=== PATIENT | female | born 1945 | race Caucasian/White ===

== ENCOUNTER → 2018-10-25 | Outpatient (CLI) | payer MEDICARE ==
--- NOTE | 2018-10-25 08:41 | US ---
EXAMINATION TYPE: US abdomen limited DATE OF EXAM: 10/25/2018 COMPARISON: NONE CLINICAL HISTORY: 73-year-old female R94.5 Elevated Liver Function. Patient takes medication for HTN, cholesterol, diuresis TECHNIQUE: Multiple sonographic images of the right upper quadrant are obtained. FINDINGS: EXAM MEASUREMENTS: Liver Length: 17.3 cm. Gallbladder Wall: 0.3 cm CBD: 4.3 mm Right Kidney: 9.3 x 4.9 x 4.0 cm Pancreas: Suboptimal visualization of the pancreatic tail secondary to shadowing from bowel gas. Vis ualized portions show no gross adenopathy. Liver: Borderline in size with heterogeneous and some images showing nodular contour. No focal les ion identified. Gallbladder: multiple shadowing gallstones measuring up to 1.8 cm, with one 4 mm nonmobile stone see n in neck in LLD position. No wall thickening, abnormal distention, or pericholecystic fluid. Evidence for sonographic Mendoza's sign: no CBD: wnl Right Kidney: No hydronephrosis. IMPRESSION: 1. Borderline liver size with heterogeneous echotexture and some images showing nodular contour. Shay elate for underlying cirrhosis. 2. Cholelithiasis measuring up to 1.8 cm. While one 4 mm gallstone is nonmobile at the neck, there ar e no ancillary findings of acute cholecystitis at this time. 3. No biliary ductal dilatation.
== END ==
LOC: RADUSWWP 06:54
PROVIDERS: ATTEND Family Medicine
DX: K80.20 Calculus of gallbladder without cholecystitis without obstruction (principal)
CPT/HCPCS: 76705

== ENCOUNTER → 2023-04-05 | Outpatient (CLI) | payer MEDICARE ==
--- NOTE | 2023-04-05 10:03 | US ---
EXAMINATION TYPE: US liver DATE OF EXAM: 04/05/2023 COMPARISON: 10/25/2018 CLINICAL INDICATION: Female, 77 years old with history of R94.5 ABN RESULTS OF LIVER FUNCTION TESTS; elevated LFTs TECHNIQUE: Multiple sonographic images of the right upper quadrant are obtained. FINDINGS: EXAM MEASUREMENTS: Liver Length: 15.4 cm Gallbladder Wall: 0.13 cm CBD: 0.22 cm Right Kidney: 9.8x4.7x4.6 cm MORTGAGE CLERK NOTES: Pancreas: Tail obscured by overlying bowel gas Liver: upper limits, heterogenous, surface nodularity Gallbladder: several large shadowing stones seen again on todays exam Evidence for sonographic Mendoza's sign: No CBD: wnl Right Kidney: No hydronephrosis or masses seen exam technically difficult due to rib shadows, bowel gas, and body habitus The visualized portions of the pancreas are unremarkable. The tail is obscured by overlying bowel gas . Liver is heterogenous in echotexture with surface nodularity identified suggestive of cirrhosis. Th is limits evaluation for lesions. No focal lesion visualized. Cholelithiasis demonstrated. No pericho lecystic fluid or wall thickening. Per housekeeper and laundry assistant, negative sonographic Mendoza sign. Common bile mk t within normal limits. No hydronephrosis or solid masses or nephrolithiasis involving the right kidn ey. IMPRESSION: Limited examination due to rib shadows, overlying bowel gas, and patient's body habitus. 1. Findings suggestive of hepatic cirrhosis with heterogeneous echotexture and surface nodularity. No visualized focal lesion. 2. Cholelithiasis without evidence for acute cholecystitis.
== END | disposition home or self-care (01) ==
LOC: RADUSWWP 08:09
PROVIDERS: ATTEND Family Medicine
DX: K80.20 Calculus of gallbladder without cholecystitis without obstruction (principal); R94.5 Abnormal results of liver function studies
CPT/HCPCS: 76705

== ENCOUNTER → 2023-10-11 | Outpatient (CLI) | payer MEDICARE ==
--- NOTE | 2023-10-12 07:37 | CA ---
Transthoracic Echo Report Name: Lyndsay Galan Age: 78 Gender: F : 1945 Exam Date: 10/11/2023 15:17 Exam Location: [facility] Ht (in): 60 Wt (lb): 154 Ordering Physician: Delvin Conway MD Attending/Referring Phys: Stanley Graham MD Recovery Operator Gabriella Painter [facility] Procedure CPT: Indications: K74.60 UNSPECIFIED CIRRHOSIS OF LIVER Cardiac Hx: Technical Quality: Fair Contrast 1: Total Dose (mL): Contrast 2: Total Dose (mL): MEASUREMENTS (Male / Female) Normal Values 2D ECHO LV Diastolic Diameter PLAX 3.4 cm 4.2 - 5.9 / 3.9 - 5.3 cm LV Systolic Diameter PLAX 2.7 cm IVS Diastolic Thickness 1.0 cm 0.6 - 1.0 / 0.6 - 0.9 cm LVPW Diastolic Thickness 0.9 cm 0.6 - 1.0 / 0.6 - 0.9 cm LV Relative Wall Thickness 0.6 LVOT Diameter 2.0 cm Ascending Aorta Diameter 3.1 cm M-MODE Aortic Root Diameter MM 2.4 cm LA Systolic Diameter MM 3.5 cm LA Ao Ratio MM 1.4 AV Cusp Separation MM 1.9 cm DOPPLER AV Peak Velocity 160.9 cm/s AV Peak Gradient 10.4 mmHg AV Mean Velocity 107.9 cm/s AV Mean Gradient 5.1 mmHg AV Velocity Time Integral 34.8 cm LVOT Peak Velocity 136.2 cm/s LVOT Peak Gradient 7.4 mmHg LVOT Velocity Time Integral 31.9 cm LVOT Stroke Volume 97.8 cm??? LVOT Stroke Volume Index 58.5 ml/m??? LVOT Cardiac Index 3751.9 cm???/min???m??? AV Area Cont Eq vti 2.8 cm??? AV Area Cont Eq pk 2.6 cm??? Mitral E Point Velocity 62.1 cm/s Mitral A Point Velocity 102.6 cm/s Mitral E to A Ratio 0.6 MV Deceleration Time 175.6 ms LV E' Lateral Velocity 7.4 cm/s Mitral E to LV E' Lateral Ratio 8.4 LV E' Septal Velocity 5.1 cm/s Mitral E to LV E' Septal Ratio 12.2 TR Peak Velocity 275.9 cm/s TR Peak Gradient 30.4 mmHg Right Atrial Pressure 3.0 mmHg Pulmonary Artery Systolic Pressu 33.4 mmHg Right Ventricular Systolic Press 33.4 mmHg FINDINGS Left Ventricle Mildly increased septal wall thickness. Left ventricular cavity size normal. Normal left ventricular systolic function with no obvious regional wall motion abnormalities. Left ventricular ejection fraction is estimated at 55-60%. Right Ventricle Normal right ventricular size. Right Atrium Normal right atrial size. Left Atrium Normal left atrial size. Mitral Valve Mitral valve thickened. Mild thickening/calcification of the posterior mitral valve leaflet. Trace mitral regurgitation. Aortic Valve Trileaflet aortic valve. Aortic valve sclerosis. No aortic regurgitation. Tricuspid Valve Structurally normal tricuspid valve. Trace tricuspid regurgitation. Pulmonic Valve Pulmonic valve not well visualized.trace pulmonic regurgitation. Pericardium Minimal pericardial effusion (normal variant). Aorta Normal size aortic root and proximal ascending aorta. CONCLUSIONS 1. Normal left ventricular size and systolic function 2. Trace mitral and tricuspid regurgitation with no evidence of pulmonary hypertension Previewed by: Dr. Kehinde Shaver MD (Electronically Signed) Final Date: 12 October 2023 07:35
== END | disposition home or self-care (01) ==
LOC: RADECHMAIN 14:57
PROVIDERS: ATTEND Family Medicine
DX: I34.0 Nonrheumatic mitral (valve) insufficiency (principal); I36.1 Nonrheumatic tricuspid (valve) insufficiency; K74.60 Unspecified cirrhosis of liver; R06.00 Dyspnea, unspecified
CPT/HCPCS: 93306